=== PATIENT | female | born 2000 | race Asian ===

== ENCOUNTER 2022-11-03 13:05 | Emergency (ER) | payer OTHER ==
[~2022-11-03] VITALS: Ht 177.8 cm; Wt 129.7 kg
[2022-11-03 13:33] LABS: PLATELET COUNT 300 K/uL (152-353)
[2022-11-03 13:37] LABS: POTASSIUM 3.8 mmol/L (3.6-5.2)
[2022-11-03 15:15] VITALS: BP 107/55; TEMP 97.8
== END 2022-11-03 15:15 | disposition short-term general hospital (02) ==
LOC: ED 13:05
PROVIDERS: Emergency Medicine
DX: O47.03 False labor before 37 completed weeks of gestation, third trimester (principal); Z3A.35 35 weeks gestation of pregnancy
CPT/HCPCS: 36415; 80053; 85027; 99284

== ENCOUNTER 2023-02-28 03:43 | Emergency (ER) | payer OTHER ==
[~2023-02-28] VITALS: Ht 177.8 cm; Wt 122.5 kg
[2023-02-28 04:48] LABS: PLATELET COUNT 230 K/uL (152-353)
[2023-02-28 06:13] VITALS: BP 134/85; TEMP 97.8
== END 2023-02-28 06:13 | disposition home health service (06) ==
LOC: ED 03:43
PROVIDERS: Radiology Diagnostic Radiology
DX: M54.50 Low back pain, unspecified (principal); R10.9 Unspecified abdominal pain
CPT/HCPCS: 36415; 80053; 81000; 81025; 85027; 96372; 99283; J1885; J2405

== ENCOUNTER 2023-05-30 07:59 | Emergency (ER) | payer OTHER ==
[~2023-05-30] VITALS: Ht 177.8 cm; Wt 119.3 kg
[2023-05-30 08:05] VITALS: BP 130/82; TEMP 99
[2023-05-30 08:39] LABS: PLATELET COUNT 271 K/uL (152-353)
== END 2023-05-30 10:30 | disposition home or self-care (01) ==
LOC: ED 07:59
PROVIDERS: Family Medicine
DX: K80.20 Calculus of gallbladder without cholecystitis without obstruction (principal); R11.2 Nausea with vomiting, unspecified; E86.0 Dehydration; E88.81 Metabolic syndrome and other insulin resistance
CPT/HCPCS: 36415; 80053; 81000; 81025; 85027; 96361; 96374; 96375; 99284; J1885; J2405